=== PATIENT | female | born 2000 | race Caucasian/White ===

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

== ENCOUNTER 2020-12-23 08:58 | Outpatient (CLI) | payer BC, OTHER ==
[2020-12-23 11:07] LABS: BHCG - Serum Negative (NEGATIVE); Pregs Control Bar Appear? YES (CONTROL BAR)
[2020-12-23 11:08] LABS: Pregs Control Background? CLEAR/WHITE (CLR/WHITE)
[2020-12-23 19:06] LABS: SARS-CoV-2 PCR by NAA Not Detected (NotDetected)
== END 2020-12-23 08:59 | disposition home or self-care (01) ==
LOC: LABBT 08:58
PROVIDERS: ATTEND Orthopaedic Surgery
DX: Z01.812 Encounter for preprocedural laboratory examination (principal); S43.431A Superior glenoid labrum lesion of right shoulder, initial encounter; Z20.822 Contact with and (suspected) exposure to COVID-19
CPT/HCPCS: 84703; U0003; U0005

== ENCOUNTER 2020-12-26 06:13 | Day surgery (SDC) | payer BC ==
[2020-12-25 10:41] VITALS: BMI 22.6
[2020-12-26] MEDS ORDERED: Fentanyl 100 MCG/2 ML VIAL ONE ×3 (06:36→08:54)
[2020-12-26] MEDS ORDERED: Midazolam HCl 2 mg/2 ml Vial ONE ×2 (06:38→07:06)
[2020-12-26] MEDS ORDERED: ePHEDrine Sulfate 50 MG/10 ML VIAL ONE (06:55)
[2020-12-26] MEDS ORDERED: Dexamethasone 20 MG/5 ML VIAL ONE (06:55)
[2020-12-26] MEDS ORDERED: Rocuronium Bromide 10 MG/ML (10ML VIAL) ONE (06:55)
[2020-12-26] MEDS ORDERED: Ropivacaine 0.5% HCl/PF (150 MG/30 ML VIAL) ONE (06:55)
[2020-12-26] MEDS ORDERED: diphenhydrAMINE 50 MG/ML VIAL ONE (06:55)
[2020-12-26] MEDS ORDERED: PHENYLEPHRINE-NS 100 MCG/ML 10 ML SYRINGE ONE (06:55)
[2020-12-26] MEDS ORDERED: Glycopyrrolate 0.2 MG/ML 5 ML SYRINGE ONE (06:55)
[2020-12-26] MEDS ORDERED: Ondansetron PF 4 MG/2 ML Vial ONE (06:55)
[2020-12-26] MEDS ORDERED: Ropivacaine 2% HCl/PF (20 MG/10 ML VIAL) ONE (06:55)
[2020-12-26] MEDS ORDERED: PROPOFOL 200 MG/20 ML VIAL ONE (06:55)
[2020-12-26] MEDS ORDERED: Lidocaine 1% PF 5 ML VIAL ONE (06:55)
[2020-12-26] MEDS ORDERED: Scopolamine 1.5 mg/72 hour Patch ONE (07:06)
[2020-12-26] MEDS ORDERED: Fentanyl 100 MCG/2 ML VIAL IV PRN (07:34)
[2020-12-26] MEDS ORDERED: Ketorolac Tromethamine 30 MG/ML VIAL IVP PRN (07:45)
[2020-12-26] MEDS ORDERED: Promethazine HCl 25 MG/ML VIAL IM PRN (07:45)
[2020-12-26] MEDS ORDERED: Ropivacaine 0.2% 550 ML 550 ML NERVE BLCK SCH (07:45)
[2020-12-26] MEDS ORDERED: traMADol HCl 50 MG TAB PO PRN ×2 (07:45)
[2020-12-26] MEDS ORDERED: Zolpidem Tartrate 5 MG TAB PO PRN (07:45)
[2020-12-26] MEDS ORDERED: Ondansetron PF 4 MG/2 ML Vial IVP PRN (07:45)
[2020-12-26] MEDS ORDERED: HYDROcodone/Acetaminophen 10/325 mg Tablet PO PRN ×2 (07:45)
[2020-12-26] MEDS ORDERED: Lidocaine 1% w/Epinephrine 1:100K 20 ML VIAL ONE (08:04)
== END 2020-12-26 12:30 | disposition home or self-care (01) ==
LOC: SDC 06:13
PROVIDERS: ATTEND Orthopaedic Surgery
PROC: 3E0T3BZ Introduction of Anesthetic Agent into Peripheral Nerves and Plexi, Percutaneous Approach (ICD-10-PCS; principal; 2020-12-26)
PROC: 0MM14ZZ Reattachment of Right Shoulder Bursa and Ligament, Percutaneous Endoscopic Approach (ICD-10-PCS; principal; 2020-12-26)
PROC: 0LQ14ZZ Repair Right Shoulder Tendon, Percutaneous Endoscopic Approach (ICD-10-PCS; principal; 2020-12-26)
DX: S43.431A Superior glenoid labrum lesion of right shoulder, initial encounter (principal); S46.011A Strain of muscle(s) and tendon(s) of the rotator cuff of right shoulder, initial encounter; G89.18 Other acute postprocedural pain
CPT/HCPCS: A4306; J0690; J1100; J1200; J2250; J2405; J2704; J2795; J3010